=== PATIENT | male | born 1960 | race Hispanic/Latino ===

== ENCOUNTER 2021-02-20 13:57 | Emergency (ER) | payer SELFPAY ==
[~2021-02-20 13:57] MED LIST: Iopamidol-370 76% 500 ML 1 ML ONE
[2021-02-20 14:55] LABS: #Lymphocytes 1.5 thou/uL (1.20-3.40); #Monocytes 0.3 thou/uL (0.11-0.59); %Basophils 0.3 % (0.0-1.0); %Eosinophils 0.9 % (0.0-10.0); %Lymphocytes 30.7 % (21.0-51.0); %Monocytes 5.8 % (0.0-10.0); %Neutrophils 62.3 % (42.0-75.0); Hemoglobin 15.5 g/dL (14.0-18.0); Mean Corpuscular HGB CONC 34.6 g/dL (32.0-36.0); Mean Corpuscular Hemoglobin 34.1 pg (27.0-31.0); Mean Corpuscular Volume 98.6 fL (78.0-98.0); Mean Platelet Volume 7.5 fL (7.4-10.4); Platelet Count 127 thou/uL (130-400); RBC Distribution Width 13.1 % (11.5-14.5); Red Blood Cell (RBC) Count 4.53 mill/uL (4.70-6.10); White Blood Cell (WBC) Count 4.7 thou/uL (4.8-10.8)
[2021-02-20 15:13] LABS: ALT (SGPT) 12 U/L (8-55); AST (SGOT) 40 U/L (5-34); Albumin 3.7 g/dL (3.4-4.8); Alkaline Phosphatase 108 U/L (40-110); Anion Gap 19 mmol/L (10-20); BUN (Urea Nitrogen) Less than 4 mg/dL (8.4-25.7); Bilirubin, Total 0.8 mg/dL (0.2-1.2); Calc. Creatinine Clearance 0 mL/min (70-130); Calcium 8.5 mg/dL (7.8-10.44); Carbon Dioxide 24 mmol/L (23-31); Chloride 102 mmol/L (98-107); Globulin 3.3 g/dL (2.4-3.5); Glucose 86 mg/dL (80-115); Sodium 142 mmol/L (136-145)
== END 2021-02-20 16:48 | disposition home or self-care (01) ==
LOC: ERS 13:57
DX: D00.07 Carcinoma in situ of tongue (principal); B37.9 Candidiasis, unspecified; F17.210 Nicotine dependence, cigarettes, uncomplicated
CPT/HCPCS: 36415; 70487; 80053; 85025; 85652; 86140; Q9967

== ENCOUNTER 2021-03-31 10:32 | Outpatient (CLI) | payer OTHER | END 2021-03-31 10:33 | disposition home or self-care (01) | LOC: PET 10:32 | PROVIDERS: ATTEND Internal Medicine Hematology & Oncology | DX: C02.1 Malignant neoplasm of border of tongue (principal) | CPT/HCPCS: 78815; A9552 ==

== ENCOUNTER 2021-05-07 | Day surgery (SDC) | payer OTHER | END 2021-05-07 15:20 | disposition home or self-care (01) | DX: Z51.11 Encounter for antineoplastic chemotherapy (principal); C02.1 Malignant neoplasm of border of tongue; Z88.0 Allergy status to penicillin | CPT/HCPCS: 96361; 96367; 96375; 96413; J1100; J1453; J1642; J2150; J2469; J3480; J3490; J7030; J9060 ==

== ENCOUNTER 2021-05-14 08:42 | Day surgery (SDC) | payer OTHER ==
[~2021-05-14 08:42] MED LIST changes: +CISPLATIN IV SCH; +Dexamethasone 10 MG/ML VIAL SLOW IVP SCH; -Iopamidol-370 76% 500 ML 1 ML ONE; +MANNITOL IV SCH; +PALONOSETRON HCL 0.05 MG/ML 5 ML VIAL IVP SCH; +SODIUM CHLORIDE 0.9% IV SCH; +Sodium Chloride 0.9% 500 ML IVPB SCH
[2021-05-14] MEDS ORDERED: Sodium Chloride 0.9% 500 ML IVPB SCH (09:15)
[2021-05-14 09:21] VITALS: BP 104/60; TEMP 98.5
[2021-05-14] MEDS ORDERED: Sodium Chloride 0.9% 20 ML ONE (09:34)
== END 2021-05-14 13:12 | disposition home or self-care (01) ==
LOC: ONC/OP 08:42
PROVIDERS: ATTEND Internal Medicine Hematology & Oncology
DX: Z51.11 Encounter for antineoplastic chemotherapy (principal); C02.1 Malignant neoplasm of border of tongue; Z88.0 Allergy status to penicillin
CPT/HCPCS: 96361; 96367; 96375; 96413; J1100; J1453; J1642; J2150; J2469; J3490; J7030; J9060

== ENCOUNTER → 2021-05-21 | Day surgery (SDC) | payer OTHER ==

== ENCOUNTER 2021-05-28 09:57 | Day surgery (SDC) | payer OTHER ==
[2021-05-28] MEDS ORDERED: Sodium Chloride 0.9% 20 ML ONE (10:22)
[2021-05-28 10:36] VITALS: BP 116/57; TEMP 98
[2021-05-28] MEDS ORDERED: HYDROcodone/Acetaminophen 5/325 mg Tablet PO SCH (11:45)
[2021-05-28] MEDS ORDERED: SODIUM CHLORIDE 0.9% IV SCH (11:45)
[2021-05-28] MEDS ORDERED: PALONOSETRON HCL 0.05 MG/ML 5 ML VIAL IVP SCH (11:45)
[2021-05-28] MEDS ORDERED: MANNITOL IV SCH (11:45)
[2021-05-28] MEDS ORDERED: Sodium Chloride 0.9% 500 ML IV SCH ×2 (11:45)
[2021-05-28] MEDS ORDERED: CISPLATIN IV SCH (11:45)
[2021-05-28] MEDS ORDERED: Magnesium Sulfate 4 GM in Sodium Chloride 0.9% 250 ML 250 ML IVPB SCH (11:45)
== END 2021-05-28 15:37 | disposition home or self-care (01) ==
LOC: ONC/OP 09:57
PROVIDERS: ATTEND Internal Medicine Hematology & Oncology
DX: Z51.11 Encounter for antineoplastic chemotherapy (principal); C02.1 Malignant neoplasm of border of tongue; Z88.0 Allergy status to penicillin
CPT/HCPCS: 96361; 96367; 96375; 96413; J1100; J1453; J1642; J2150; J2469; J3475; J3480; J3490; J7030; J7050; J9060

== ENCOUNTER 2021-06-04 08:35 | Day surgery (SDC) | payer OTHER ==
[~2021-06-04 08:35] MED LIST changes: -Dexamethasone 10 MG/ML VIAL SLOW IVP SCH; -PALONOSETRON HCL 0.05 MG/ML 5 ML VIAL IVP SCH; +Palonosetron HCl 0.25 MG in Sodium Chloride 0.9% 50 ML IVPB SCH; +Sodium Chloride 0.9% 500 ML IV SCH; -Sodium Chloride 0.9% 500 ML IVPB SCH
[2021-06-04] MEDS ORDERED: Sodium Chloride 0.9% 20 ML ONE (08:43)
[2021-06-04 09:16] VITALS: BP 91/53; TEMP 97.9
== END 2021-06-04 12:36 | disposition home or self-care (01) ==
LOC: ONC/OP 08:35
PROVIDERS: ATTEND Internal Medicine Hematology & Oncology
DX: Z51.11 Encounter for antineoplastic chemotherapy (principal); C02.1 Malignant neoplasm of border of tongue; Z88.0 Allergy status to penicillin
CPT/HCPCS: 96361; 96367; 96375; 96413; J1100; J1453; J1642; J2150; J2469; J3480; J3490; J7030; J9060

== ENCOUNTER → 2021-06-11 | Day surgery (SDC) | payer OTHER ==
[~2021-06-11] MED LIST changes: +Magnesium Sulfate 4 GM in Sodium Chloride 0.9% 250 ML 250 ML IVPB SCH; +PALONOSETRON HCL 0.05 MG/ML 5 ML VIAL IVP SCH; +Sodium Chloride 0.9% 20 ML ONE
[2021-06-11 15:51] VITALS: BP 105/58; TEMP 98.5
== END ==
LOC: ONC/OP 08:43
PROVIDERS: ATTEND Internal Medicine Hematology & Oncology
DX: Z51.11 Encounter for antineoplastic chemotherapy (principal); C02.1 Malignant neoplasm of border of tongue; Z88.0 Allergy status to penicillin
CPT/HCPCS: 96367; 96368; 96375; 96413; J1100; J1453; J1642; J2150; J2469; J3475; J3480; J3490; J7030; J7050; J9060

== ENCOUNTER 2021-06-18 09:06 | Day surgery (SDC) | payer OTHER ==
[~2021-06-18 09:06] MED LIST changes: +NS 0.9% w/ 20 MEQ KCL 1,000 ML IV SCH; -Sodium Chloride 0.9% 20 ML ONE
[2021-06-18] MEDS ORDERED: Sodium Chloride 0.9% 20 ML ONE (09:16)
[2021-06-18 09:58] VITALS: BP 99/57
== END 2021-06-18 14:30 | disposition home or self-care (01) ==
LOC: ONC/OP 09:06
PROVIDERS: ATTEND Internal Medicine Hematology & Oncology
DX: Z51.11 Encounter for antineoplastic chemotherapy (principal); C02.1 Malignant neoplasm of border of tongue; Z88.0 Allergy status to penicillin
CPT/HCPCS: 96361; 96367; 96375; 96413; J1100; J1642; J2150; J2469; J3475; J3480; J7030; J7050; J9060

== ENCOUNTER 2021-07-24 14:53 | Outpatient (CLI) | payer OTHER ==
[2021-07-25 00:10] LABS: SARS-CoV-2 PCR by NAA Not Detected (NotDetected)
== END 2021-07-24 14:54 | disposition home or self-care (01) ==
LOC: LABBT 14:53
PROVIDERS: ATTEND Family Medicine
DX: Z01.812 Encounter for preprocedural laboratory examination (principal); Z20.822 Contact with and (suspected) exposure to COVID-19
CPT/HCPCS: U0003; U0005

== ENCOUNTER 2021-07-27 11:13 | Outpatient (CLI) | payer OTHER | END 2021-07-27 11:14 | disposition home or self-care (01) | PROVIDERS: ATTEND Radiology Radiation Oncology | DX: R13.13 Dysphagia, pharyngeal phase (principal); R63.30 Feeding difficulties, unspecified; C02.9 Malignant neoplasm of tongue, unspecified | CPT/HCPCS: 74230 ==

== ENCOUNTER 2021-09-15 07:52 | Outpatient (CLI) | payer SELFPAY | END 2021-09-15 07:53 | disposition home or self-care (01) | LOC: PET 07:52 | PROVIDERS: ATTEND Internal Medicine Hematology & Oncology | DX: C02.1 Malignant neoplasm of border of tongue (principal) | CPT/HCPCS: 78815; A9552 ==

== ENCOUNTER 2022-04-05 08:56 | Outpatient (CLI) | payer SELFPAY | END 2022-04-05 08:57 | disposition home or self-care (01) | LOC: LABBT 08:56 | PROVIDERS: ATTEND Specialist | DX: Z01.818 Encounter for other preprocedural examination (principal); C02.9 Malignant neoplasm of tongue, unspecified; K14.6 Glossodynia; K14.0 Glossitis; Z87.891 Personal history of nicotine dependence; Z20.822 Contact with and (suspected) exposure to COVID-19 | CPT/HCPCS: 87811; 93005; 93010 ==

== ENCOUNTER 2022-04-08 07:43 | Day surgery (SDC) | payer OTHER ==
[2022-04-08] MEDS ORDERED: EPINEPHrine 1 MG/ML AMP ONE (09:19)
[2022-04-08] MEDS ORDERED: Lidocaine 1% w/Epinephrine 1:100K 20 ML VIAL ONE (09:19)
[2022-04-08] MEDS ORDERED: fentaNYL Citrate/PF 100 MCG/2 ML SYRINGE ONE (09:28)
[2022-04-08] MEDS ORDERED: SUGAMMADEX SODIUM 200 MG/2 ML VIAL ONE (09:29)
[2022-04-08] MEDS ORDERED: Ondansetron PF 4 MG/2 ML Vial ONE (10:00)
[2022-04-08] MEDS ORDERED: Rocuronium Bromide 10 MG/ML (10ML VIAL) ONE (10:00)
[2022-04-08] MEDS ORDERED: PROPOFOL 200 MG/20 ML VIAL ONE (10:00)
[2022-04-08] MEDS ORDERED: Dexamethasone 20 MG/5 ML VIAL ONE (10:00)
[2022-04-08] MEDS ORDERED: Lidocaine 1% PF 5 ML VIAL ONE (10:00)
[2022-04-08] MEDS ORDERED: Fentanyl 100 MCG/2 ML VIAL ONE ×2 (10:51→11:14)
== END 2022-04-08 12:21 | disposition home or self-care (01) ==
LOC: SDC 07:43
PROVIDERS: ATTEND Specialist
PROC: 0CBM8ZX Excision of Pharynx, Via Natural or Artificial Opening Endoscopic, Diagnostic (ICD-10-PCS; principal; 2022-04-08)
DX: C01 Malignant neoplasm of base of tongue (principal); F17.200 Nicotine dependence, unspecified, uncomplicated; Z88.0 Allergy status to penicillin
CPT/HCPCS: 88305; J0171; J1100; J2405; J2704; J3010

== ENCOUNTER 2022-05-07 08:45 | Outpatient (CLI) | payer OTHER | END 2022-05-07 08:46 | disposition home or self-care (01) | LOC: PET 08:45 | PROVIDERS: ATTEND Radiology Radiation Oncology | DX: C02.8 Malignant neoplasm of overlapping sites of tongue (principal) | CPT/HCPCS: 78815; A9552 ==

== ENCOUNTER 2023-01-10 00:41 | Inpatient (IN) | payer SELFPAY ==
[2023-01-10 02:05] LABS: #Lymphocytes 0.4 thou/uL (1.20-3.40); #Monocytes 1.1 thou/uL (0.11-0.59); #Neutrophils 9.5 thou/uL (1.40-6.50); %Basophils 0.3 % (0.0-1.0); %Eosinophils 0.3 % (0.0-10.0); %Lymphocytes 3.5 % (21.0-51.0); %Monocytes 9.8 % (0.0-10.0); %Neutrophils 86.1 % (42.0-75.0); Hemoglobin 7.3 g/dL (14.0-18.0); Mean Corpuscular HGB CONC 35.8 g/dL (32.0-36.0); Mean Corpuscular Hemoglobin 35.8 pg (27.0-31.0); Mean Platelet Volume 6.9 fL (7.4-10.4); Platelet Count 228 10x3/uL (130-400); RBC Distribution Width 13.7 % (11.5-14.5); Red Blood Cell (RBC) Count 2.05 mill/uL (4.70-6.10); White Blood Cell (WBC) Count 11.1 10x3/uL (4.8-10.8)
[2023-01-10 02:25] LABS: Albumin 2.9 g/dL (3.4-4.8); Anion Gap 13 mmol/L (10-20); BUN (Urea Nitrogen) 16 mg/dL (8.4-25.7); Bilirubin, Total 0.3 mg/dL (0.2-1.2); Calc. Creatinine Clearance 0 mL/min (70-130); Calcium 7.8 mg/dL (7.8-10.44); Carbon Dioxide 24 mmol/L (23-31); Chloride 104 mmol/L (98-107); Estimated GFR 101; Glucose 187 mg/dL (80-115); Potassium 2.7 mmol/L (3.5-5.1); Protein, Total 5.3 g/dL (5.8-8.1); Sodium 138 mmol/L (136-145)
[2023-01-10 02:26] LABS: ALT (SGPT) 8 U/L (8-55); AST (SGOT) 19 U/L (5-34); Alkaline Phosphatase 44 U/L (40-110); Globulin 2.4 g/dL (2.4-3.5)
[2023-01-10 02:43] LABS: INR-International Normal Ratio 1.2; PTT 27.1 sec (22.9-36.1); Prothrombin Time 15.5 sec (12.0-14.7)
[2023-01-10] MEDS ORDERED: Pot Chloride/Pot Bicarb/Cit Ac 25 mEq Effervescent Tablet ONE (04:17)
[2023-01-10] MEDS ORDERED: NS 0.9% w/ 40 MEQ KCL 1,000 ML IV SCH (04:30)
[2023-01-10] MEDS ORDERED: Morphine 4 MG/ML VIAL ONE (07:10)
[2023-01-10] MEDS ORDERED: Cefepime 2 GM VIAL ONE (10:21)
[2023-01-10] MEDS ORDERED: Azithromycin 500 MG VIAL ONE (10:21)
[2023-01-10] MEDS ORDERED: Senokot S 8.6-50 MG TAB PO PRN (11:37)
[2023-01-10] MEDS ORDERED: Ondansetron ODT 4 MG TAB PO PRN (11:37)
[2023-01-10] MEDS ORDERED: Ondansetron PF 4 MG/2 ML Vial IVP PRN (11:37)
[2023-01-10] MEDS ORDERED: Acetaminophen 325 MG TAB PO PRN (11:37)
[2023-01-10] MEDS ORDERED: VANCOMYCIN IVPB PRN (11:42)
[2023-01-10] MEDS ORDERED: Morphine 2 MG/ML VIAL SLOW IVP PRN (12:18)
[2023-01-10] MEDS: Sodium Chloride 0.9% 1,000 ML IV SCH ×2 (12:33→20:56)
[2023-01-10] MEDS: Vancomycin HCl 750 MG in Sodium Chloride 0.9% 250 ML 250 ML IVPB SCH (12:51)
[2023-01-10] MEDS ORDERED: Dextrose 5% in Water 1,000 ML IV PRN (13:22)
[2023-01-10] MEDS ORDERED: HumaLOG 300 UNITS/3 ML VIAL SC PRN (13:22)
[2023-01-10] MEDS ORDERED: Dextrose 50% Abboject 50 ML SYRINGE SLOW IVP PRN (13:22)
[2023-01-10] MEDS ORDERED: metroNIDAZOLE 500 MG/100 ML BAG ONE (13:54)
[2023-01-10] MEDS: metroNIDAZOLE 500 MG in Premix Bag 1 BAG IVPB SCH ×2 (13:57→21:11)
[2023-01-10 14:22] LABS: Hemoglobin 5.8 g/dL (14.0-18.0); Platelet Count 204 10x3/uL (130-400)
[2023-01-10 17:47] LABS: Glucose 196 mg/dL (80-115)
[2023-01-10] MEDS ORDERED: Morphine 2 MG/ML VIAL ONE (18:25)
[2023-01-10 20:15] VITALS: BMI 20.8
[2023-01-10] MEDS: Famotidine 20 MG TAB PO SCH (20:49)
[2023-01-10] MEDS ORDERED: Famotidine/PF 20 mg/2ml Vial SLOW IVP SCH (21:00)
[2023-01-10] MEDS ORDERED: Morphine 2 MG/ML VIAL SLOW IVP SCH (21:00)
[2023-01-10 22:00] LABS: Glucose 93 mg/dL (80-115); Potassium 3.4 mmol/L (3.5-5.1)
[2023-01-10] MEDS: Cefepime 2 GM in Sodium Chloride 0.9% 100 ML IVPB SCH (23:22)
[2023-01-11] MEDS: Vancomycin HCl 750 MG in Sodium Chloride 0.9% 250 ML 250 ML IVPB SCH ×2 (01:30→16:30)
[2023-01-11] MEDS: Morphine 4 MG/ML VIAL SLOW IVP PRN ×4 (01:43→22:01)
[2023-01-11] MEDS: metroNIDAZOLE 500 MG in Premix Bag 1 BAG IVPB SCH ×3 (05:27→21:16)
[2023-01-11 06:23] LABS: #Basophils 0.1 thou/uL (0.0-0.2); #Eosinphils 0.2 thou/uL (0.0-0.7); #Monocytes 1.2 thou/uL (0.11-0.59); #Neutrophils 8.3 thou/uL (1.40-6.50); %Basophils 0.5 % (0.0-1.0); %Eosinophils 1.5 % (0.0-10.0); %Lymphocytes 9.6 % (21.0-51.0); %Monocytes 11.3 % (0.0-10.0); Hemoglobin 9.5 g/dL (14.0-18.0); Mean Corpuscular HGB CONC 35.3 g/dL (32.0-36.0); Mean Corpuscular Volume 99.1 fl (78.0-98.0); Mean Platelet Volume 7.3 fL (7.4-10.4); Platelet Count 184 10x3/uL (130-400); RBC Distribution Width 15.2 % (11.5-14.5); Red Blood Cell (RBC) Count 2.71 mill/uL (4.70-6.10); White Blood Cell (WBC) Count 10.8 10x3/uL (4.8-10.8)
[2023-01-11 06:46] LABS: ALT (SGPT) 7 U/L (8-55); AST (SGOT) 17 U/L (5-34); Albumin 2.4 g/dL (3.4-4.8); Alkaline Phosphatase 35 U/L (40-110); Anion Gap 9 mmol/L (10-20); BUN (Urea Nitrogen) 12 mg/dL (8.4-25.7); Bilirubin, Total 0.9 mg/dL (0.2-1.2); Calc. Creatinine Clearance 101 mL/min (70-130); Calcium 7.5 mg/dL (7.8-10.44); Carbon Dioxide 21 mmol/L (23-31); Chloride 110 mmol/L (98-107); Estimated GFR 111; Globulin 2.1 g/dL (2.4-3.5); Glucose 101 mg/dL (80-115); Potassium 3.2 mmol/L (3.5-5.1); Protein, Total 4.5 g/dL (5.8-8.1); Sodium 137 mmol/L (136-145)
[2023-01-11] MEDS: Famotidine 20 MG TAB PO SCH ×2 (09:22→21:16)
[2023-01-11] MEDS: Cefepime 2 GM in Sodium Chloride 0.9% 100 ML IVPB SCH ×2 (12:02→23:23)
[2023-01-11 12:28] LABS: Glucose 101 mg/dL (80-115)
[2023-01-11 13:57] LABS: Hemoglobin 9.4 g/dL (14.0-18.0)
[2023-01-11 18:19] LABS: Glucose 92 mg/dL (80-115)
[2023-01-12 00:53] LABS: Vancomycin, Trough 8.3 ug/mL
[2023-01-12] MEDS: Vancomycin 1.5 GRAM/300 ML BAG 1.5 GM in Premix Bag 1 BAG IVPB SCH ×2 (01:12→14:11)
[2023-01-12 05:30] LABS: Hemoglobin 9.3 g/dL (14.0-18.0); Mean Corpuscular HGB CONC 35.8 g/dL (32.0-36.0); Mean Corpuscular Hemoglobin 34.5 pg (27.0-31.0); Mean Corpuscular Volume 96.4 fl (78.0-98.0); Mean Platelet Volume 6.5 fL (7.4-10.4); Platelet Count 304 10x3/uL (130-400); RBC Distribution Width 14.8 % (11.5-14.5); Red Blood Cell (RBC) Count 2.69 mill/uL (4.70-6.10); White Blood Cell (WBC) Count 6.9 10x3/uL (4.8-10.8)
[2023-01-12 05:35] LABS: Anion Gap 10 mmol/L (10-20); BUN (Urea Nitrogen) 5 mg/dL (8.4-25.7); Calc. Creatinine Clearance 97 mL/min (70-130); Carbon Dioxide 22 mmol/L (23-31); Chloride 106 mmol/L (98-107); Estimated GFR 110; Glucose 94 mg/dL (80-115); Magnesium 1.3 mg/dL (1.6-2.6); Potassium 2.9 mmol/L (3.5-5.1); Sodium 135 mmol/L (136-145)
[2023-01-12] MEDS: Morphine 4 MG/ML VIAL SLOW IVP PRN ×2 (06:02→13:15)
[2023-01-12] MEDS: metroNIDAZOLE 500 MG in Premix Bag 1 BAG IVPB SCH ×3 (06:02→23:11)
[2023-01-12 07:40] LABS: Glucose 97 mg/dL (80-115)
[2023-01-12] MEDS: Famotidine 20 MG TAB PO SCH ×2 (10:28→21:25)
[2023-01-12] MEDS: Cefepime 2 GM in Sodium Chloride 0.9% 100 ML IVPB SCH (10:28)
[2023-01-12 12:12] LABS: Glucose 104 mg/dL (80-115)
[2023-01-12] MEDS ORDERED: Magnesium Sulfate In Water 4 GM in Premix Bag 1 BAG IVPB SCH (12:30)
[2023-01-12] MEDS ORDERED: Potassium Phosphate 30 MMOL, Magnesium Sulfate 4 GM in Sodium Chloride 0.9% 250 ML 250 ML IVPB SCH (12:45)
[2023-01-13] MEDS: Cefepime 2 GM in Sodium Chloride 0.9% 100 ML IVPB SCH ×3 (00:12→22:42)
[2023-01-13] MEDS: Vancomycin 1.5 GRAM/300 ML BAG 1.5 GM in Premix Bag 1 BAG IVPB SCH (01:35)
[2023-01-13] MEDS: Morphine 4 MG/ML VIAL SLOW IVP PRN ×5 (05:22→21:34)
[2023-01-13] MEDS: metroNIDAZOLE 500 MG in Premix Bag 1 BAG IVPB SCH ×3 (05:23→21:34)
[2023-01-13 06:16] LABS: #Basophils 0.1 thou/uL (0.0-0.2); #Eosinphils 0.2 thou/uL (0.0-0.7); #Lymphocytes 1.3 thou/uL (1.20-3.40); #Monocytes 0.9 thou/uL (0.11-0.59); #Neutrophils 5.4 thou/uL (1.40-6.50); %Basophils 0.8 % (0.0-1.0); %Eosinophils 2.9 % (0.0-10.0); %Lymphocytes 16.6 % (21.0-51.0); %Monocytes 11.6 % (0.0-10.0); %Neutrophils 68.2 % (42.0-75.0); Hemoglobin 9.5 g/dL (14.0-18.0); Mean Corpuscular HGB CONC 35.1 g/dL (32.0-36.0); Mean Corpuscular Hemoglobin 34.7 pg (27.0-31.0); Mean Platelet Volume 6.5 fL (7.4-10.4); Platelet Count 377 10x3/uL (130-400); RBC Distribution Width 14.9 % (11.5-14.5); Red Blood Cell (RBC) Count 2.72 mill/uL (4.70-6.10); White Blood Cell (WBC) Count 7.9 10x3/uL (4.8-10.8)
[2023-01-13 06:37] LABS: Anion Gap 10 mmol/L (10-20); BUN (Urea Nitrogen) 5 mg/dL (8.4-25.7); Calc. Creatinine Clearance 88 mL/min (70-130); Calcium 8.1 mg/dL (7.8-10.44); Carbon Dioxide 22 mmol/L (23-31); Chloride 106 mmol/L (98-107); Estimated GFR 107; Glucose 104 mg/dL (80-115); Potassium 3.2 mmol/L (3.5-5.1); Sodium 135 mmol/L (136-145)
[2023-01-13] MEDS: Famotidine 20 MG TAB PO SCH ×2 (08:13→20:17)
[2023-01-13] MEDS ORDERED: Potassium Chloride 40 MEQ in Premix Bag 1 BAG IVPB SCH (09:15)
[2023-01-13] MEDS ORDERED: Potassium Chloride 40 MEQ in Sodium Chloride 0.9% 250 ML 250 ML IVPB SCH (09:30)
[2023-01-13 10:14] LABS: Phosphorus 2.8 mg/dL (2.3-4.7)
[2023-01-13 12:18] LABS: Vancomycin, Trough 27.6 ug/mL
[2023-01-13 17:18] LABS: Magnesium 1.6 mg/dL (1.6-2.6); Phosphorus 2.1 mg/dL (2.3-4.7)
[2023-01-14] MEDS: Morphine 4 MG/ML VIAL SLOW IVP PRN ×4 (01:15→15:54)
[2023-01-14] MEDS: metroNIDAZOLE 500 MG in Premix Bag 1 BAG IVPB SCH ×2 (05:25→15:48)
[2023-01-14 05:41] LABS: #Eosinphils 0.3 thou/uL (0.0-0.7); #Lymphocytes 1.8 thou/uL (1.20-3.40); #Neutrophils 6.4 thou/uL (1.40-6.50); %Basophils 0.4 % (0.0-1.0); %Eosinophils 3.3 % (0.0-10.0); %Lymphocytes 19.2 % (21.0-51.0); %Neutrophils 67.2 % (42.0-75.0); Hemoglobin 9.9 g/dL (14.0-18.0); Mean Corpuscular HGB CONC 34.5 g/dL (32.0-36.0); Mean Corpuscular Hemoglobin 34.8 pg (27.0-31.0); Mean Platelet Volume 6.5 fL (7.4-10.4); Platelet Count 448 10x3/uL (130-400); RBC Distribution Width 14.9 % (11.5-14.5); Red Blood Cell (RBC) Count 2.83 mill/uL (4.70-6.10); White Blood Cell (WBC) Count 9.6 10x3/uL (4.8-10.8)
[2023-01-14 05:55] LABS: Anion Gap 12 mmol/L (10-20); BUN (Urea Nitrogen) 7 mg/dL (8.4-25.7); Calc. Creatinine Clearance 83 mL/min (70-130); Calcium 8.7 mg/dL (7.8-10.44); Carbon Dioxide 22 mmol/L (23-31); Chloride 104 mmol/L (98-107); Estimated GFR 105; Glucose 114 mg/dL (80-115); Potassium 3.8 mmol/L (3.5-5.1); Sodium 134 mmol/L (136-145)
[2023-01-14] MEDS: Famotidine 20 MG TAB PO SCH (09:41)
[2023-01-14 10:21] LABS: Magnesium 1.4 mg/dL (1.6-2.6); Phosphorus 2.4 mg/dL (2.3-4.7)
[2023-01-14] MEDS: Cefepime 2 GM in Sodium Chloride 0.9% 100 ML IVPB SCH (11:24)
[2023-01-14 17:24] VITALS: BP 110/69; TEMP 98.7
[2023-01-14 17:34] LABS: Glucose 99 mg/dL (80-115)
== END 2023-01-14 19:13 | disposition hospice, home (50) | DRG 146 ==
LOC: ERS 00:41 → ERHOLD 10:53 → MSONC 20:02
PROVIDERS: ADMIT Internal Medicine; ATTEND Internal Medicine
PROC: 30233N1 Transfusion of Nonautologous Red Blood Cells into Peripheral Vein, Percutaneous Approach (ICD-10-PCS; principal; 2023-01-10)
DX: C76.0 Malignant neoplasm of head, face and neck (principal); J69.0 Pneumonitis due to inhalation of food and vomit; D62 Acute posthemorrhagic anemia; E44.0 Moderate protein-calorie malnutrition; R64 Cachexia; C77.9 Secondary and unspecified malignant neoplasm of lymph node, unspecified; Z66 Do not resuscitate; Z51.5 Encounter for palliative care; R13.12 Dysphagia, oropharyngeal phase; E87.6 Hypokalemia; E83.39 Other disorders of phosphorus metabolism; F17.210 Nicotine dependence, cigarettes, uncomplicated; E83.42 Hypomagnesemia; J44.9 Chronic obstructive pulmonary disease, unspecified; Z88.8 Allergy status to other drugs, medicaments and biological substances; Z88.0 Allergy status to penicillin; Z79.899 Other long term (current) drug therapy; Z92.21 Personal history of antineoplastic chemotherapy; Z92.3 Personal history of irradiation; Z98.890 Other specified postprocedural states; Z68.20 Body mass index [BMI] 20.0-20.9, adult
CPT/HCPCS: 36415; 36416; 36430; 71045; 71275; 74230; 80053; 80202; 82947; 83605; 83735; 84100; 85025; 85027; 85610; 85730; 86850; 86900; 86901; 87040; 87081; 93005; 96365; 96366; 96367; 96368; 96375; J0456; J0692; J2270; J2272; J3370; J3475; J3480; J3490; J7050; P9016; S0028

== ENCOUNTER 2023-01-18 19:34 | Inpatient (IN) | payer SELFPAY ==
[2023-01-18 20:46] LABS: #Basophils 0.1 thou/uL (0.0-0.2); #Eosinphils 0.1 thou/uL (0.0-0.7); #Lymphocytes 0.7 thou/uL (1.20-3.40); #Monocytes 1.4 thou/uL (0.11-0.59); #Neutrophils 17.5 thou/uL (1.40-6.50); %Basophils 0.3 % (0.0-1.0); %Eosinophils 0.3 % (0.0-10.0); %Lymphocytes 3.7 % (21.0-51.0); %Monocytes 6.9 % (0.0-10.0); %Neutrophils 88.7 % (42.0-75.0); Hemoglobin 7.5 g/dL (14.0-18.0); Mean Corpuscular Hemoglobin 36.1 pg (27.0-31.0); Mean Platelet Volume 6.7 fL (7.4-10.4); Platelet Count 482 10x3/uL (130-400); RBC Distribution Width 13.8 % (11.5-14.5); Red Blood Cell (RBC) Count 2.07 mill/uL (4.70-6.10); White Blood Cell (WBC) Count 19.8 10x3/uL (4.8-10.8)
[2023-01-18 20:57] LABS: INR-International Normal Ratio 1.1; Prothrombin Time 14.4 sec (12.0-14.7)
[2023-01-18 21:09] LABS: ALT (SGPT) Less than 7 U/L (8-55); AST (SGOT) 14 U/L (5-34); Albumin 3.1 g/dL (3.4-4.8); Alkaline Phosphatase 37 U/L (40-110); Anion Gap 15 mmol/L (10-20); BUN (Urea Nitrogen) 26 mg/dL (8.4-25.7); Bilirubin, Total 0.2 mg/dL (0.2-1.2); Calc. Creatinine Clearance 0 mL/min (70-130); Calcium 8.9 mg/dL (7.8-10.44); Carbon Dioxide 24 mmol/L (23-31); Chloride 105 mmol/L (98-107); Estimated GFR 98; Globulin 2.9 g/dL (2.4-3.5); Glucose 163 mg/dL (80-115); Potassium 3.9 mmol/L (3.5-5.1); Sodium 140 mmol/L (136-145)
[2023-01-18] MEDS ORDERED: fentaNYL 50 mcg/mL 1 mL Vial ONE (23:15)
[2023-01-19] MEDS ORDERED: Ondansetron PF 4 MG/2 ML Vial IVP PRN (00:33)
[2023-01-19] MEDS ORDERED: Acetaminophen 325 MG TAB PO PRN (00:33)
[2023-01-19] MEDS ORDERED: Acetaminophen 650 MG Suppository PR PRN (00:33)
[2023-01-19] MEDS ORDERED: Ondansetron ODT 4 MG TAB PO PRN (00:33)
[2023-01-19 01:13] LABS: SARS-CoV-2 NAA Rapid Test Not Detected (NotDetected)
[2023-01-19 01:31] VITALS: BMI 17.0
[2023-01-19] MEDS ORDERED: Morphine 2 MG/ML VIAL SLOW IVP PRN (02:13)
[2023-01-19] MEDS ORDERED: Electrolyte Replacement Protocol 1 EACH FS SCH (02:15)
[2023-01-19 04:23] LABS: #Basophils 0.1 thou/uL (0.0-0.2); #Eosinphils 0.1 thou/uL (0.0-0.7); #Lymphocytes 1.2 thou/uL (1.20-3.40); #Monocytes 1.2 thou/uL (0.11-0.59); #Neutrophils 9.5 thou/uL (1.40-6.50); %Basophils 0.5 % (0.0-1.0); %Lymphocytes 9.6 % (21.0-51.0); %Monocytes 9.8 % (0.0-10.0); %Neutrophils 79.1 % (42.0-75.0); Hemoglobin 8.1 g/dL (14.0-18.0); Mean Corpuscular HGB CONC 35.6 g/dL (32.0-36.0); Mean Corpuscular Hemoglobin 35.2 pg (27.0-31.0); Mean Corpuscular Volume 98.9 fl (78.0-98.0); Mean Platelet Volume 6.7 fL (7.4-10.4); Platelet Count 396 10x3/uL (130-400); RBC Distribution Width 13.6 % (11.5-14.5); Red Blood Cell (RBC) Count 2.29 mill/uL (4.70-6.10)
[2023-01-19 04:42] LABS: Anion Gap 10 mmol/L (10-20); BUN (Urea Nitrogen) 22 mg/dL (8.4-25.7); Calc. Creatinine Clearance 78 mL/min (70-130); Calcium 8.3 mg/dL (7.8-10.44); Carbon Dioxide 24 mmol/L (23-31); Chloride 107 mmol/L (98-107); Estimated GFR 105; Glucose 140 mg/dL (80-115); Potassium 3.4 mmol/L (3.5-5.1); Sodium 138 mmol/L (136-145)
[2023-01-19] MEDS ORDERED: Potassium Chloride 20 MEQ TAB PO SCH (08:00)
[2023-01-19] MEDS ORDERED: Famotidine/PF 20 mg/2ml Vial SLOW IVP SCH (09:00)
[2023-01-19] MEDS: fentaNYL 50 mcg/mL 1 mL Vial SLOW IVP PRN ×2 (09:48→14:07)
[2023-01-19 12:20] VITALS: TEMP 99.3
== END 2023-01-19 15:51 | disposition hospice, home (50) | DRG 812 ==
LOC: ERS 19:34 → IMCU/EMU 23:15
PROVIDERS: ADMIT Student in an Organized Health Care Education/Training Program; ATTEND Family Medicine
PROC: 30233N1 Transfusion of Nonautologous Red Blood Cells into Peripheral Vein, Percutaneous Approach (ICD-10-PCS; principal; 2023-01-18)
DX: D62 Acute posthemorrhagic anemia (principal); R04.2 Hemoptysis; C79.89 Secondary malignant neoplasm of other specified sites; R04.0 Epistaxis; F10.10 Alcohol abuse, uncomplicated; F17.210 Nicotine dependence, cigarettes, uncomplicated; R03.0 Elevated blood-pressure reading, without diagnosis of hypertension; I95.9 Hypotension, unspecified; D72.829 Elevated white blood cell count, unspecified; Z20.822 Contact with and (suspected) exposure to COVID-19; C76.0 Malignant neoplasm of head, face and neck; Z88.0 Allergy status to penicillin
CPT/HCPCS: 36415; 36430; 71045; 80048; 80053; 83605; 85025; 85610; 85730; 86850; 86900; 86901; J3010; P9016; S0028

== ENCOUNTER 2023-01-21 22:51 | Inpatient (IN) | payer SELFPAY ==
[2023-01-21 23:21] LABS: Hemoglobin 7.3 g/dL (14.0-18.0); Mean Corpuscular HGB CONC 35.3 g/dL (32.0-36.0); Mean Corpuscular Hemoglobin 35.5 pg (27.0-31.0); Mean Platelet Volume 6.9 fL (7.4-10.4); Platelet Count 461 10x3/uL (130-400); RBC Distribution Width 13.1 % (11.5-14.5); Red Blood Cell (RBC) Count 2.05 mill/uL (4.70-6.10); White Blood Cell (WBC) Count 24.8 10x3/uL (4.8-10.8)
[2023-01-21 23:38] LABS: Band 7 % (5-11); Lymphocytes 10 % (21-51); MDiff Complete? YES; Monocytes 3 % (0-10); Neutrophil 80 % (42-75); PTT 21.4 sec (22.9-36.1); Platelet Morphology Comment Appears Increased
[2023-01-21 23:39] LABS: ALT (SGPT) 9 U/L (8-55); AST (SGOT) 13 U/L (5-34); Albumin 3.1 g/dL (3.4-4.8); Alkaline Phosphatase 43 U/L (40-110); Anion Gap 14 mmol/L (10-20); BUN (Urea Nitrogen) 20 mg/dL (8.4-25.7); Bilirubin, Total 0.2 mg/dL (0.2-1.2); Calc. Creatinine Clearance 0 mL/min (70-130); Carbon Dioxide 25 mmol/L (23-31); Chloride 105 mmol/L (98-107); Estimated GFR 98; Globulin 2.7 g/dL (2.4-3.5); Glucose 214 mg/dL (80-115); Potassium 4.1 mmol/L (3.5-5.1); Protein, Total 5.8 g/dL (5.8-8.1); Sodium 140 mmol/L (136-145)
[2023-01-22] MEDS ORDERED: Ondansetron PF 4 MG/2 ML Vial ONE (01:38)
[2023-01-22] MEDS ORDERED: Tranexamic Acid 1,000 MG/10 ML VIAL ONE (03:10)
[2023-01-22] MEDS ORDERED: Promethazine HCl 12.5 MG in Sodium Chloride 0.9% 50 ML IVPB SCH (03:30)
[2023-01-22] MEDS ORDERED: Racepinephrine 2.25% 0.5 ML NEB ONE (03:54)
[2023-01-22] MEDS ORDERED: Acetaminophen 650 MG Suppository PR PRN (04:37)
[2023-01-22] MEDS ORDERED: Ondansetron PF 4 MG/2 ML Vial IVP PRN (04:37)
[2023-01-22 05:20] VITALS: BMI 17.6
[2023-01-22] MEDS: Dextrose 5%-Lactated Ringers 1,000 ML IV SCH ×2 (05:36→21:03)
[2023-01-22 06:19] LABS: Mean Corpuscular HGB CONC 34.3 g/dL (32.0-36.0); Mean Corpuscular Hemoglobin 33.8 pg (27.0-31.0); Mean Corpuscular Volume 98.6 fl (78.0-98.0); Mean Platelet Volume 6.8 fL (7.4-10.4); Platelet Count 351 10x3/uL (130-400); RBC Distribution Width 13.2 % (11.5-14.5); Red Blood Cell (RBC) Count 2.06 mill/uL (4.70-6.10); White Blood Cell (WBC) Count 20.4 10x3/uL (4.8-10.8)
[2023-01-22] MEDS: Famotidine/PF 20 mg/2ml Vial SLOW IVP SCH ×2 (09:38→21:03)
[2023-01-22] MEDS: Morphine 2 MG/ML VIAL SLOW IVP PRN ×2 (15:15→23:41)
[2023-01-23 03:50] LABS: #Basophils 0.1 thou/uL (0.0-0.2); #Eosinphils 0.3 thou/uL (0.0-0.7); #Lymphocytes 1.5 thou/uL (1.20-3.40); #Monocytes 0.9 thou/uL (0.11-0.59); #Neutrophils 6.9 thou/uL (1.40-6.50); %Basophils 0.5 % (0.0-1.0); %Eosinophils 2.7 % (0.0-10.0); %Lymphocytes 15.7 % (21.0-51.0); %Monocytes 9.2 % (0.0-10.0); %Neutrophils 71.8 % (42.0-75.0); Mean Corpuscular HGB CONC 35.9 g/dL (32.0-36.0); Mean Corpuscular Hemoglobin 34.5 pg (27.0-31.0); Mean Corpuscular Volume 96.3 fl (78.0-98.0); Mean Platelet Volume 6.8 fL (7.4-10.4); Platelet Count 310 10x3/uL (130-400); RBC Distribution Width 14.8 % (11.5-14.5); Red Blood Cell (RBC) Count 2.31 mill/uL (4.70-6.10); White Blood Cell (WBC) Count 9.5 10x3/uL (4.8-10.8)
[2023-01-23] MEDS: Morphine 2 MG/ML VIAL SLOW IVP PRN ×3 (03:52→16:26)
[2023-01-23 04:10] LABS: Anion Gap 11 mmol/L (10-20); BUN (Urea Nitrogen) 9 mg/dL (8.4-25.7); Calc. Creatinine Clearance 84 mL/min (70-130); Calcium 8.5 mg/dL (7.8-10.44); Carbon Dioxide 24 mmol/L (23-31); Chloride 106 mmol/L (98-107); Estimated GFR 106; Glucose 109 mg/dL (80-115); Potassium 3.8 mmol/L (3.5-5.1); Sodium 137 mmol/L (136-145)
[2023-01-23] MEDS ORDERED: Hydrocodone-Acetamin 15 ML UDCUP PO PRN (08:56)
[2023-01-23] MEDS: Dextrose 5%-Lactated Ringers 1,000 ML IV SCH (09:18)
[2023-01-23] MEDS: Famotidine/PF 20 mg/2ml Vial SLOW IVP SCH ×2 (09:22→20:12)
[2023-01-23] MEDS ORDERED: HYDROcodone/Acetaminophen 7.5/325 mg Tablet PO PRN (16:15)
[2023-01-24] MEDS: Dextrose 5%-Lactated Ringers 1,000 ML IV SCH ×2 (00:09→15:01)
[2023-01-24] MEDS: Morphine 2 MG/ML VIAL SLOW IVP PRN ×2 (04:23→08:19)
[2023-01-24 08:02] VITALS: TEMP 97.6
[2023-01-24] MEDS: Famotidine/PF 20 mg/2ml Vial SLOW IVP SCH (08:21)
[2023-01-24 09:11] LABS: Hemoglobin 8.5 g/dL (14.0-18.0); Platelet Count 388 10x3/uL (130-400)
== END 2023-01-24 17:03 | disposition home or self-care (01) | DRG 147 ==
LOC: ERS 22:51 → IMCU/EMU 01-22 03:54
PROVIDERS: ADMIT Student in an Organized Health Care Education/Training Program; ATTEND Internal Medicine
PROC: 30233N1 Transfusion of Nonautologous Red Blood Cells into Peripheral Vein, Percutaneous Approach (ICD-10-PCS; principal; 2023-01-22)
DX: C76.0 Malignant neoplasm of head, face and neck (principal); D62 Acute posthemorrhagic anemia; R04.2 Hemoptysis; R64 Cachexia; Z68.1 Body mass index [BMI] 19.9 or less, adult; Z66 Do not resuscitate; F17.210 Nicotine dependence, cigarettes, uncomplicated; Z88.0 Allergy status to penicillin
CPT/HCPCS: 36415; 36430; 80048; 80053; 85014; 85018; 85025; 85027; 85049; 85610; 85730; 86850; 86900; 86901; 93005; J1956; J2272; J2405; J2550; P9016; S0028